=== PATIENT | female | born 1995 | race Caucasian/White ===

== ENCOUNTER 2016-12-20 19:21 | Emergency (ER) | payer OTHER ==
[2016-12-20 19:47] VITALS: BP 114/52; PULSE 98; RESP 14; TEMP 96.8; O2SAT 96
--- NOTE | 2016-12-20 21:18 | UCPHY ---
[id number] female had outpatient x-ray of her left small toe and was called at home and told there was a subluxation of the distal aspect of that toe. She states she injured it earlier this week and then began kicked a table accidentally and now with severe pain in her left little toe Review of systems General no fever no chills no weakness HEENT no eye pain no eye discharge. No eye redness, no sore throat Respiratory no cough, no shortness of breath Cardiac no chest pain, no peripheral edema GI no abdominal pain, no diarrhea, no constipation, no nausea, no vomiting no flank pain, no hematuria, no dysuria Musculoskeletal no myalgias, positive joint pain Heme no easy bruising, no easy bleeding Endo no polyuria, no polydipsia Skin no rashes, no pruritus Neuro no syncope, no dizziness, no headaches Psych is no suicidal ideation, no homicidal ideation Past Medical/Surgical History: Noncontributory Social History: Attended [employer] recently graduated is currently looking for employment She major to in [place] Smoking Status: Never smoked Physical Exam: 21-year-old female alert and oriented no acute distress nontoxic appearance Alert and oriented in no acute distress nontoxic appearance, afebrile Atraumatic normocephalic Neck no JVD Lungs clear to auscultation, no respiratory distress Heart regular rate and rhythm Extremities no cyanosis clubbing edema Left foot left little toe positive edema, ecchymosis and appears to be slightly laterally deviated Constitutional: Initial Vital Signs Temperature (C) 36 C 12/20/16 19:42 Heart Rate 98 12/20/16 19:42 Respiratory Rate 14 12/20/16 19:42 Blood Pressure 114/52 L 12/20/16 19:42 O2 Sat (%) 96 12/20/16 19:42 O2 Delivery Mode Room Air Allergies/Adverse Reactions: No Known Allergies Allergy (Unverified 12/20/16 19:47) Home Medications: Medication Instructions Recorded NK [No Known Home Meds] 12/20/16 Medical Decision Making - Diagnostics Imaging: X-ray with subluxation distal phalanx on left little toe left foot Procedures: Procedure-reduction of distal phalanx subluxation on left little toe Digital block performed with lidocaine 1% combined with bupivacaine 0.25% without epi Longitudinal traction with mild hyper extension and medial deviation applied to reduce distal phalanx Reduction x-ray shows good reduction Toe howie-taped Patient tolerated well ED Course/Re-evaluation: Patient seen and evaluated for subluxation left little toe distal phalanx Impression Subluxation of distal phalanx of left little toe Plan Reduction Reduction completed with good results Toe howie-taped and patient discharged home Departure - Departure Disposition: Home, Routine, Self-Care Clinical Impression: Subluxation of interphalangeal joint of toe Condition: Good Instructions: Finger Dislocation (ED) Referrals: Nancy Lopez [Primary Care Provider] - As per Instructions Stuart Santos DPM [Doctor of Podiatric Medicine] - As per Instructions - PQRS PQRS Measurement: na
--- NOTE | 2016-12-20 21:43 | DX ---
Left Fifth Toe, Three Views History: Subluxation after repeated injury. Comparison: Left fifth toe the same day at 1733 hours. Findings: Previously noted lateral subluxation of the proximal interphalangeal joint is decreased. Mild widening of the medial aspect of the joint space may be congenital, with asymmetric foreshorteni ng of the medial aspect of the middle phalanx. No fracture is identified. Corticated osseous struct ure at the lateral base of the distal phalanx of the great toe suggests sequela of old healed fractur e. Impression: Improved alignment of the proximal interphalangeal joint of the 5th toe, with no visible fracture.
== END 2016-12-20 21:21 | disposition home or self-care (01) ==
LOC: CED 19:21
PROC: 0SSNXZZ Reposition Left Metatarsal-Phalangeal Joint, External Approach (ICD-10-PCS; principal; 2016-12-20)
DX: S93.135A Subluxation of interphalangeal joint of left lesser toe(s), initial encounter (principal); W22.8XXA Striking against or struck by other objects, initial encounter
CPT/HCPCS: 73660-PO; G0463-PO

== ENCOUNTER → 2016-12-20 | Outpatient (CLI) | payer OTHER ==
--- NOTE | 2016-12-20 17:48 | DX ---
Left Fifth Toe, 3 Views, at 5:36 p.m. Clinical History: 21-year-old female who has injured her fifth digit twice in the past week. Comparison Study: None. Findings: There is an increased distance seen along the central and medial portions of the fifth toe proximal interphalangeal joint with slight lateral subluxation of the middle phalanx relative to the proximal phalanx, noted on the second image acquired. There is associated soft tissue swelling. There is no acute fracture or loose osteochondral body identified. There is a well-corticated ossific dens ity at the lateral base of the great toe distal phalanx. The tarsometatarsal alignment is anatomic. Impression: Joint subluxation with asymmetric joint space widening of the fifth toe PIP joint, with s oft tissue swelling but no acute fracture identified.
== END ==
LOC: CIMAGING 17:21
PROVIDERS: ATTEND Family Medicine
DX: M79.675 Pain in left toe(s) (principal)
CPT/HCPCS: 73660-PO